=== PATIENT | male | born 1990 | race Caucasian/White ===

== ENCOUNTER 2017-07-05 23:00 | Inpatient (IN) | payer OTHER ==
[~2017-07-05] VITALS: Ht 182.9 cm; Wt 71.2 kg
--- NOTE | ~2017-07-05 | WRIGHTHP ---
[place], [place] PATIENT HISTORY AND PHYSICAL EXAM NAME: [facility] #: [id number] UNIT #: [id number] ROOM: 412 DOCTOR: DENANA FRAZIER MD BIRTHDATE: [birth year] DOS: 07/06/2017 HISTORY OF PRESENT ILLNESS: The patient has been admitted to hospital as emergency admission with history of repeated vomiting, fever and chills for the last 3 days, progressively getting worse and he was not able to retain too much food. He came to Emergency Department where on investigation was found to be having pneumonia with sepsis and needed to be admitted to the hospital. PAST MEDICAL HISTORY: The patient does not have any major medical problem except some upper respiratory tract infection. PAST SURGICAL HISTORY: Had surgical cyst removed. SOCIAL HISTORY: He smokes 1 pack of cigarettes daily and he also smokes some marijuana and he uses moderate amount of alcohol. He denies using any drugs. FAMILY HISTORY: Noncontributory. ALLERGIES: He is not allergic to any medication. PHYSICAL EXAMINATION: GENERAL: The patient is conscious, alert and oriented. VITAL SIGNS: His blood pressure is 134/78, pulse 88, respirations 20, temperature is 98.3. HEENT: He is having congestion of nose and throat. His ears are normal. NECK: Lymph nodes are enlarged in the neck and somewhat tender. Trachea is central. HEART: Regular, no murmur. LUNGS: He is having few rhonchi with crepitation. ABDOMEN: Showing some tenderness in the epigastrium. Liver and spleen not palpable. There is no other area of tenderness. No mass palpable. Rest of examination is normal. LABORATORY DATA: Luce test is negative. His CBC showed white count 23,500, hemoglobin 16, hematocrit 45.5, 87% neutrophils, 8% lymphocytes, neutrophils. Comprehensive metabolic profile showed glucose 119, BUN 9, creatinine 0.66. His sodium is 135. SGOT 47, alkaline phosphatase is 228. Other values are normal. Rapid influenza test is negative. Urine examination shows 2+ bilirubin, 1+ ketones, 1+ protein, positive nitrite, 2+ bacteria, indicating urinary tract infection also. CT of the abdomen was normal, but the CT of the chest shows moderate diffuse right lung pneumonia, relatively prominent unilateral reticular nodular pattern, lymphocytic anemia, histoplasmosis pneumotosis cranii and other atypical pneumonia shall be considered. His comprehensive metabolic today is essentially normal except alkaline phosphate 246 and his temperature today shows blood pressure 134/78, pulse 86, respirations 20, temperature 98.3. DIAGNOSES:1. Right lower lobe pneumonia with sepsis; urinary tract infection; tobacco abuse. [place], [place] PATIENT HISTORY AND PHYSICAL EXAM NAME: MICHAELA WATSON UNIT #: [id number] ROOM: 412 DOCTOR: DEANNA FRAZIER MD BIRTHDATE: [birth year] PLAN OF TREATMENT: The patient will be admitted to the hospital. Will receive IV fluid, 1 gram IV daily, Zithromax 250 mg IV daily, promethazine hydrochloride 12.5 mg p.r.n., and Zofran 4 mg q. 6 hours p.r.n. The patient is responding to treatment fairly good. He stopped vomiting. He is feeling somewhat better. He denies too much chest pain or difficulty in breathing. I have counseled the patient in detail to stop smoking, but the patient says he will not stop smoking. DEANNA FRAZIER MD CM:HISPHYS:PATIENT HISTORY AND PHYSICAL EXAMINATION [id number] DEANNA FRAZIER MD 07/06/17 1312 interface
--- NOTE | ~2017-07-05 | PR ---
[place], [place] PROGRESS NOTE NAME: MICHAELA WATSON [facility] #: [id number] UNIT #: [id number] ROOM: 412 DOCTOR: KORY GLYNN,NOVEMBER BIRTHDATE: [birth year] DOS: SUBJECTIVE: The patient is a 27-year-old male who is being followed for community-acquired pneumonia. His sputum culture is currently pending. His influenza was negative. Urine and blood cultures are negative. Sputum gram stain had few gram-positive cocci in pairs, culture has normal milo, few wbcs on the gram stain. It was obtained yesterday. He had already been on antibiotics for over 24 hours at the time it was obtained. He is on Rocephin and Zithromax. His urine for Legionella and strep pneumoniae are pending, as is his CD4 count, hepatitis panel, HIV, IgG total and subsets as well as IgA and IgM. His WBCs have improved significantly; they are down to 8.3, platelets 336. BUN 6, creatinine 0.7, AST 59, ALT 58, albumin is 3.6. An MRI today due to complaints of vision changes, which does not demonstrate any acute changes. He is alert and oriented. No nausea, vomiting or diarrhea. He did have a headache earlier today, which has improved. He has had headaches since he became ill approximately a week ago. He also had some vision changes earlier. He had been given Vicodin and Zofran and was watching TV and his vision became blurry, that has since resolved and his vision is normal. His cough has improved. He did have some shortness of breath overnight, now has some O2 via nasal cannula. No rashes. PHYSICAL EXAMINATION: VITAL SIGNS: Temperature 97.9, pulse 62, respirations 18, BP 120/80. GENERAL: A 27-year-old male. HEAD, EYES, EARS, NOSE AND THROAT: Normocephalic. He does have thrush. LUNGS: Better aeration bilaterally, few rales and rhonchi in the bases, respirations even and unlabored. HEART: Regular rhythm. No murmur appreciated. ABDOMEN: Soft, nontender, nondistended. EXTREMITIES: No edema, deformity or cyanosis. SKIN: Warm, dry, free of rashes. ASSESSMENT: Community-acquired pneumonia as well as thrush. PLAN: SD4 count is pending and HIV and hepatitis panel were also done earlier today. He has IgG total and subsets sets as well as IgA and IgM are pending. It is of note, he gives history of no recurrent infection, only other time he had pneumonia was when he was in 5th grade. Continue the Mycelex Troches for his thrush as well as the Rocephin and Zithromax for his community-acquired pneumonia and follow up on above pending labs. Case discussed with Dr. Natalie Kim. ADDENDUM I agree with the above plans as described. We will follow the patient up clinically and adjust medication accordingly. [place], [place] PROGRESS NOTE NAME: MICHAELA WATSON UNIT #: [id number] ROOM: 412 DOCTOR: KORY GLYNN,NOVEMBER BIRTHDATE: [birth year] ANTONIO HORN CNP NATALIE KIM MD CM:PNEDWAR [id number] NOVEMBER KORY GLYNN 07/09/17 0429 interface
--- NOTE | ~2017-07-05 | CON ---
[place], [place] REPORT OF CONSULTATION NAME: MICHAELA WATSON UNIT #: [id number] ROOM: 412 DOCTOR: KORY GLYNN,NOVEMBER BIRTHDATE: [birth year] DOS: 07/07/2017 HISTORY OF PRESENT ILLNESS: The patient is a 27-year-old male who was admitted from home on Friday the with states he was having fevers, chills at the time of admission. He has been afebrile since admission. He has productive cough, little shortness of breath, also having left-sided chest pain and intractable nausea and vomiting. Abdominal CT demonstrated right middle lobe pneumonia. Chest CT from the demonstrated pneumonia. I am unable to retrieve the films to review the actual films. He has been on Rocephin and Zithromax. He states he is improving somewhat, again he has been afebrile. He had significant leukocytosis, which is slowly improving. His admitting WBCs were 23.58, down 19.5 today. Urine for legionella and strep pneumoniae are pending. Sputum culture has just been obtained this morning, sputum is somewhat dick. He denies any recent weight loss or recurrent infection. States he has only had pneumonia once before when he was very young, in 5th grade, otherwise he has an unremarkable medical history and again denies any recurrent infections. Admitting tox screen was only positive for marijuana. States he has been sick now for approximately 6 days. PAST MEDICAL HISTORY: As above. SOCIAL HISTORY: Smokes 1 pack of cigarettes per day for 6 years. Denies significant alcohol use. Only illicit drug with occasional marijuana. Denies any history of IV drug use. No recent travel. FAMILY MEDICAL HISTORY: hw states parents and siblings are healthy. No chronic illness. ALLERGIES: No known drug allergies. CURRENT MEDICATIONS: Include Rocephin, Warren, Zithromax and Lovenox. LABORATORY DATA: WBC is 19.5, platelets 256. BUN 7, creatinine 0.66. LFTs within normal limits. Heard screen was negative. Urinary antigens pending. REVIEW OF SYSTEMS: As above in history of present illness. Again, he has been afebrile since admission. Nausea and vomiting have resolved. No diarrhea. No rashes. No shaking chills. No joint swelling or pain. He continues with productive cough, has a couple of sputum at bedside, somewhat dick in appearance. No issues with recurrent infection. No recent weight loss. He was well until 6 days ago. Continues with left-sided chest discomfort, especially when the coughs. Further review of systems is unremarkable. He does have a few tattoos. PHYSICAL EXAMINATION: VITAL SIGNS: Temperature 98.4, pulse 71, respirations 18, BP 110/62. GENERAL: A 27-year-old male, in no acute distress, nontoxic in appearance. HEAD, EYES, EARS, NOSE AND THROAT: Normocephalic, questionable thrush. Denies any mouth soreness of sore throat. [place], [place] REPORT OF CONSULTATION NAME: MICHAELA WATSON UNIT #: [id number] ROOM: 412 DOCTOR: KORY GLYNNNOVEMBER BIRTHDATE: [birth year] LUNGS: Coarse rales, bilateral bases. Respirations are even and unlabored. HEART: Regular rhythm. No murmur appreciated. ABDOMEN: Soft, nondistended, nontender. Positive bowel sounds. EXTREMITIES: No edema, deformity or cyanosis. SKIN: Warm, dry, free of rashes, few tattoos noted. ASSESSMENT: Community-acquired pneumonia. PLAN: Currently on Rocephin and Zithromax, which we will continue pending the urine for legionella and strep pneumoniae as well as sputum culture which has been obtained, follow up on the admitting blood cultures, order chest x-ray in a.m. and also check a CD4 count. Case discussed with Dr. Natalie Kim. ADDENDUM I agree with the above plans as described above after reviewing the labs, microbiology radiographs and chart. We will follow the patient up clinically and adjust accordingly. Thank you for allowing me to see the patient. NOVEMBER GRETTA HORN NATALIE KIM MD CM:CONSTR:REPORT OF CONSULTATION 1106 07/09/17 0428 interface
[~2017-07-05 23:00] MED LIST: AMOXICILLIN500 M2 PO; AMOXICILLIN500 MG PO; AMPICILLIN500 MG PO; CATAFLAM50 MG PO; CELEXA20 MG PO; CEPHALEXIN500 M1 PO; CYCLOBENZAPRINE10 MG PO; Catapres-Tts 10.1 MG PO; HYDROCODONE BIT1 T11 PO; INDOMETHACIN25 M1 PO; KEFLEX500 MG PO; MOTRIN800 MG PO; Motrin,Rufen800 MG PO; NAPROSYN500 MG PO; NKHM; NORCO 5-325 TA1 EACH PO; NORFLEX100 MG PO; Orphenadrine C100 MG PO; PERCOCET 325 MG1 TA5 PO; PREDNISONE20 M1 PO; PYRIDIUM200 MG PO; SKELAXIN800 M1 PO; TRAMADOL HCL50 MG PO; TRAZADONE PO; TRAZODONE50 MG PO; ULTRAM50 MG PO; [UNRECOGNIZED DRUG - OTHER] PO
[2017-07-05 23:04] VITALS: BP 144/77
[2017-07-05 23:53] LABS: HEMATOCRIT 45.4 % (42.0-52.0); MEAN CELL VOLUME 88.3 fl (80.0-94.0); MEAN CORPUSCULAR HGB 31.1 pg (27.0-31.0); MEAN CORPUSCULAR HGB CONC 35.2 g/dl (33.0-37.0); MEAN PLATELET VOLUME 10.6 fl (9.6-12.3); PLATELET COUNT AUTOMATED 254 10*3/uL (130-400); RED BLOOD COUNT 5.14 10*6/uL (4.50-5.90); RED CELL DISTRI WIDTH 12.9 % (0-14.5); WHITE BLOOD COUNT 23.5 10*3/uL (4.8-10.8)
[2017-07-06 00:09] LABS: ALBUMIN 4.1 gm/dl (3.1-4.5); ALKALINE PHOSPHATASE 228 U/L (45-117); BUN 9 mg/dl (7-24); CHLORIDE 100 mmol/L (98-107); CREATININE 0.66 mg/dL (0.70-1.30); POTASSIUM 3.7 mmol/L (3.5-5.1); SGOT/AST 47 IU/L (3-35); SGPT/ALT 45 U/L (12-78); SODIUM 135 mmol/L (136-145); TOTAL PROTEIN 7.6 gm/dL (6.4-8.2)
[2017-07-06 00:12] LABS: PLATELET SUFFICIENCY NORMAL (NORMAL); TOTAL CELLS COUNTED 100 #CELLS
[2017-07-06 01:32] LABS: BILIRUBIN 2+ (NEGATIVE); BLOOD NEGATIVE (NEGATIVE); CLARITY SL CLOUDY (CLEAR); COLOR YELLOW (YELLOW); GLUCOSE NEGATIVE (NEGATIVE); KETONE 1+ (NEGATIVE); LEUKO ESTERASE TRACE (NEGATIVE); NITRITE POSITIVE (NEGATIVE); PH 6.5 (5.0-9.0); SPECIFIC GRAVITY 1.015 (1.005-1.030); UROBILINOGEN >= 8.0 E.U./dl (0.2-1.0)
[2017-07-06 01:44] LABS: BACTERIA 2+
[2017-07-06 02:30] LABS: HEMATOCRIT 40.3 % (42.0-52.0); HEMOGLOBIN 14.2 g/dl (14.0-18.0); MEAN CELL VOLUME 89.6 fl (80.0-94.0); MEAN CORPUSCULAR HGB 31.6 pg (27.0-31.0); MEAN CORPUSCULAR HGB CONC 35.2 g/dl (33.0-37.0); MEAN PLATELET VOLUME 10.7 fl (9.6-12.3); PLATELET COUNT AUTOMATED 245 10*3/uL (130-400); WHITE BLOOD COUNT 20.7 10*3/uL (4.8-10.8)
[2017-07-06 02:50] LABS: ATYPICAL LYMPHS 1 % (0-0); PLATELET SUFFICIENCY NORMAL (NORMAL); TOTAL CELLS COUNTED 100 #CELLS
[2017-07-06 06:00] LABS: URINE AMPHETAMINES < 1000 (1000ng/ml); URINE BARBITURATES < 200 (200ng/ml); URINE BENZODIAZEPINES < 200 (200ng/ml); URINE CANNABINOIDS (THC) > 50 (50ng/ml); URINE COCAINE < 300 (300ng/ml); URINE METHADONE < 300 (300ng/ml); URINE OPIATES < 300 (300ng/ml)
[2017-07-06 06:15] LABS: URINE PHENCYCLIDINE < 25 (25ng/ml)
[2017-07-06 06:20] VITALS: BP 136/76
[2017-07-06 06:30] VITALS: BP 136/76
--- NOTE | 2017-07-06 07:30 | NUR ---
PATIENT DENIES ANY HOME MEDICATIONS.
[2017-07-06 08:00] VITALS: BP 134/78
--- NOTE | 2017-07-06 09:27 | NUR ---
CALLED AND NOTIFIED INFECTIOUS DISEASE OF CONSULT. ORDERS RECEIVED AND REPEATED BACK CONTINUE ON ANTIBIOTICS AND ORDER CHEST CT SCAN WO CONTRAST. DR WILL BE IN TO SEE PATIENT LATER TODAY
[2017-07-06 09:48] LABS: BASO # 0.1 10*3/uL (0.0-0.1); BASO % 0.3 % (0.0-1.0); EOS # 0.1 10*3/uL (0.0-0.4); EOS % 0.7 % (1.0-4.0); HEMATOCRIT 41.7 % (42.0-52.0); HEMOGLOBIN 14.4 g/dl (14.0-18.0); LYMPH # 1.6 10*3/uL (1.3-4.4); LYMPH % 8.3 % (27.0-41.0); MEAN CELL VOLUME 89.1 fl (80.0-94.0); MEAN CORPUSCULAR HGB 30.8 pg (27.0-31.0); MEAN CORPUSCULAR HGB CONC 34.5 g/dl (33.0-37.0); MEAN PLATELET VOLUME 10.7 fl (9.6-12.3); MONO # 1.4 10*3/uL (0.1-1.0); MONO % 6.9 % (3.0-9.0); NEUT # 16.2 10*3/uL (2.3-7.9); NEUT % 83.4 % (47.0-73.0); PLATELET COUNT AUTOMATED 256 10*3/uL (130-400); RED BLOOD COUNT 4.68 10*6/uL (4.50-5.90); RED CELL DISTRI WIDTH 13.1 % (0-14.5); WHITE BLOOD COUNT 19.5 10*3/uL (4.8-10.8)
[2017-07-06 10:17] LABS: ALBUMIN 3.3 gm/dl (3.1-4.5); ALKALINE PHOSPHATASE 249 U/L (45-117); BUN 7 mg/dl (7-24); CHLORIDE 104 mmol/L (98-107); CREATININE 0.66 mg/dL (0.70-1.30); SGOT/AST 19 IU/L (3-35); SGPT/ALT 36 U/L (12-78); SODIUM 138 mmol/L (136-145); TOTAL PROTEIN 6.7 gm/dL (6.4-8.2)
--- NOTE | 2017-07-06 11:19 | NUR ---
PATIENT SLEEPING IN BED. NO CO AT THIS TIME CALL LIGHT IN REACH SEE SHIFT ASSESSMENT
[2017-07-06 12:00] VITALS: BP 116/70
[2017-07-06 16:22] VITALS: BP 130/69
--- NOTE | 2017-07-06 16:43 | NUR ---
PATIENT RESTING IN BED CALL LIGHT IN REACH NO CO AT THIS TIME
[2017-07-06 20:00] VITALS: BP 122/69
--- NOTE | 2017-07-06 22:57 | NUR ---
RESTING IN BED WATCHING TV. DENIES COMPLAINTS OF PAIN OR DISCOMFORT. WILL CONTINUE TO MONITOR. CALL LIGHT IN REACH.
[2017-07-07] VITALS: BP 120/58
--- NOTE | 2017-07-07 06:12 | NUR ---
PATIENT COMPLAINING OF UPPER ABDOMINAL PAIN AND CHEST/RIB PAIN. NEW ORDER FOR NORCO Q 4 HOURS PRN FOR PAIN.
--- NOTE | 2017-07-07 06:48 | NUR ---
PATIENT COMPLAINING OF IV BURNING. IV REMOVED AND 22G INSERTED INTO RIGHT ARM WITHOUT DIFFICULTY. PATIENT TOLERATED PROCEDURE WELL. GOOD BLOOD RETURN. NO SIGNS OR SYMPTOMS OF DISTRESS. CALL LIGHT IN REACH.
[2017-07-07 08:00] VITALS: BP 110/62
--- NOTE | 2017-07-07 08:30 | NUR ---
Senior Database Engineer in to talk to patient. Patient states lives at HOME with HIS GIRLFRIEND. There are 10 steps in the home. Physician: MIRIAN Pharmacy: [facility] [place] Home health services: NONE Patient's level of ADLs: INDEPENDENT Patient has working utilities: YES DME: NONE Follow-up physician's appointment after d/c: PREFERS TO MAKE HIS OWN APPT Does patient want to access PORTAL?: Discharge plan HOME. JESSICA TAVERAS
[2017-07-07 12:00] VITALS: BP 147/75
[2017-07-07 16:00] VITALS: BP 115/62
[2017-07-07 20:00] VITALS: BP 128/56
--- NOTE | 2017-07-07 20:28 | NUR ---
PATIENT MEDICATED WITH NORCO FOR COMPLAINTS OF RIGHT SIDED RIB PAIN. WILL MONITOR FOR EFFECTIVENESS.
--- NOTE | 2017-07-07 21:04 | NUR ---
PATIENT STATED NORCO SOMEWHAT EFFECTIVE AT THIS TIME. SAID IT STILL HURTS BUT NOT BAD. WILL CONTINUE TO MONITOR. CALL LIGHT IN REACH.
[2017-07-08] VITALS: BP 112/66
--- NOTE | 2017-07-08 06:04 | NUR ---
PATIENT MEDICATED WITH ZOFRAN FOR COMPLAINTS OF NAUSEA AND NORCO FOR COMPLAINTS OF RIB PAIN. WILL MONITOR FOR EFFECTIVENESS.
[2017-07-08 06:59] LABS: BASO # 0.1 10*3/uL (0.0-0.1); BASO % 0.7 % (0.0-1.0); EOS # 0.6 10*3/uL (0.0-0.4); EOS % 6.6 % (1.0-4.0); HEMATOCRIT 45.2 % (42.0-52.0); HEMOGLOBIN 15.9 g/dl (14.0-18.0); LYMPH # 2.2 10*3/uL (1.3-4.4); LYMPH % 26.9 % (27.0-41.0); MEAN CELL VOLUME 89.9 fl (80.0-94.0); MEAN CORPUSCULAR HGB 31.6 pg (27.0-31.0); MEAN CORPUSCULAR HGB CONC 35.2 g/dl (33.0-37.0); MEAN PLATELET VOLUME 10.6 fl (9.6-12.3); MONO # 0.8 10*3/uL (0.1-1.0); MONO % 9.7 % (3.0-9.0); NEUT # 4.7 10*3/uL (2.3-7.9); NEUT % 55.9 % (47.0-73.0); RED BLOOD COUNT 5.03 10*6/uL (4.50-5.90); WHITE BLOOD COUNT 8.3 10*3/uL (4.8-10.8)
[2017-07-08 07:00] LABS: PLATELET COUNT AUTOMATED 336 10*3/uL (130-400)
[2017-07-08 07:07] LABS: ALBUMIN 3.6 gm/dl (3.1-4.5); ALKALINE PHOSPHATASE 242 U/L (45-117); BUN 6 mg/dl (7-24); CHLORIDE 102 mmol/L (98-107); GAMMA GLUTAMYL TRANSPEPTIDASE 230 U/L (15-85); POTASSIUM 4.2 mmol/L (3.5-5.1); SGOT/AST 59 IU/L (3-35); SGPT/ALT 58 U/L (12-78); SODIUM 139 mmol/L (136-145); TOTAL PROTEIN 7.3 gm/dL (6.4-8.2)
[2017-07-08 08:00] VITALS: BP 124/72
--- NOTE | 2017-07-08 08:00 | NUR ---
Assessment completed and documented. Patient is sitting up in bed, watching TV, no complaints of pain or SOB. Marjan SNYDER JDRCC
[2017-07-08 08:12] LABS: HIV 1+2 AB + HIV1 P24 AG Non Reactive (Non Reactive)
[2017-07-08 08:12] LABS: WBC 12.9 x10E3/uL (3.4-10.8)
--- NOTE | 2017-07-08 10:30 | NUR ---
PT TO MRI. MONITOR D/C DURING MRI.
--- NOTE | 2017-07-08 10:39 | NUR ---
PATIENT SLEEPING PEACEFUL IN BED. SHANICE COTTONCC
--- NOTE | 2017-07-08 11:55 | NUR ---
PT GIVEN NORCO FOR PAIN. ZOFRAN FOR NAUSEA, AND MILK OF MAGNESIA AND BISCODYL PRN.
[2017-07-08 12:00] VITALS: BP 120/80
--- NOTE | 2017-07-08 12:20 | NUR ---
PATIENT HAS NO COMPLAINTS OF PAIN, SITTING UP IN BED, WATCHING TV. SHANICE COTTONCC
[2017-07-08 14:05] LABS: ABSOLUTE CD 4 HELPER 1010 /uL (359-1519); ABSOLUTE CD8 SUPRESSOR 406 /uL (109-897); CD 4 POS LYMPH, % 50.5 % (30.8-58.5); CD 8 POS LYMPH, % 20.3 % (12.0-35.5)
[2017-07-08 16:00] VITALS: BP 109/73
--- NOTE | 2017-07-08 16:22 | NUR ---
PT MEDICATED WITH ZOFRAN AND NORCO FOR C/O OF DISCOMFORT.
--- NOTE | 2017-07-08 18:43 | NUR ---
HR UP TO 130'S -150'S/SINUS TACHYCARDIA/REGULAR RATE DOWN TO 110'S WITH REST.
--- NOTE | 2017-07-08 18:49 | NUR ---
HR CURRENTLY 80'S -90'S NSR AND REGULAR ON HIDE HOUSE SUPERVISOR WITH RESTING IN BED.
[2017-07-08 20:00] VITALS: BP 122/88
--- NOTE | 2017-07-08 21:46 | NUR ---
PATIENT MEDICATED WITH NORCO FOR COMPLAINTS OF RIGHT RIB PAIN AND ZOFRAN FOR COMPLAINTS OF UPSET STOMACH. WILL MONITOR FOR EFFECTIVENESS. CALL LIGHT IN REACH.
--- NOTE | 2017-07-08 23:57 | NUR ---
NORCO AND ZOFRAN EFFECTIVE. RESTING IN BED WITH EYES CLOSED. NO SIGNS OR SYMPTOMS OF DISTRESS NOTED. CALL LIGHT IN REACH.
[2017-07-09] VITALS: BP 121/66
[2017-07-09 01:03] LABS: IGG SUBCLASS 1 301 mg/dL (248-810); IGG SUBCLASS 2 134 mg/dL (130-555); IGG SUBCLASS 3 68 mg/dL (15-102); IGG SUBCLASS 4 7 mg/dL (2-96)
[2017-07-09 04:00] VITALS: BP 124/72
--- NOTE | 2017-07-09 05:46 | NUR ---
PATIENT MEDICATED WITH ZOFRAN FOR COMPLAINTS OF NAUSEA. WILL MONITOR FOR EFFECTIVENESS. CALL LIGHT IN REACH.
--- NOTE | 2017-07-09 06:08 | NUR ---
ANA EFFECTIVE AT THIS TIME. STATES HE IS FEELING BETTER. WILL CONTINUE TO MONITOR. CALL LIGHT IN REACH.
[2017-07-09 06:31] LABS: BASO # 0.1 10*3/uL (0.0-0.1); BASO % 1.1 % (0.0-1.0); EOS # 0.5 10*3/uL (0.0-0.4); EOS % 6.5 % (1.0-4.0); HEMATOCRIT 48.4 % (42.0-52.0); HEMOGLOBIN 16.4 g/dl (14.0-18.0); LYMPH # 2.4 10*3/uL (1.3-4.4); LYMPH % 28.7 % (27.0-41.0); MEAN CELL VOLUME 89.8 fl (80.0-94.0); MEAN CORPUSCULAR HGB 30.4 pg (27.0-31.0); MEAN CORPUSCULAR HGB CONC 33.9 g/dl (33.0-37.0); MEAN PLATELET VOLUME 10.3 fl (9.6-12.3); MONO # 0.7 10*3/uL (0.1-1.0); MONO % 8.8 % (3.0-9.0); NEUT # 4.5 10*3/uL (2.3-7.9); NEUT % 54.4 % (47.0-73.0); PLATELET COUNT AUTOMATED 395 10*3/uL (130-400); RED BLOOD COUNT 5.39 10*6/uL (4.50-5.90); RED CELL DISTRI WIDTH 13.1 % (0-14.5); WHITE BLOOD COUNT 8.3 10*3/uL (4.8-10.8)
[2017-07-09 06:58] LABS: BUN 7 mg/dl (7-24); CHLORIDE 105 mmol/L (98-107); CREATININE 0.76 mg/dL (0.70-1.30); POTASSIUM 4.2 mmol/L (3.5-5.1); SODIUM 142 mmol/L (136-145)
[2017-07-09 08:00] VITALS: BP 120/86
[2017-07-09 08:13] LABS: HEPATITIS B SURFACE AG Negative (Negative); HEPATITIS C VIRUS ANTIBODY <0.1 s/co (0.0-0.9)
--- NOTE | 2017-07-09 08:42 | NUR ---
PATIENT CURRENTLY OFF FLOOR, DUE TO PROCEDURE. NPO SINCE 2400. PATIENT WAS PLEASANT AND COOPERATIVE. DON MORENOCC
--- NOTE | 2017-07-09 09:00 | NUR ---
BACK FROM RADIOLOGY, BREAKFAST ORDERED RAH BRO KEVINCC
--- NOTE | 2017-07-09 09:11 | NUR ---
MEDICATED WITH PRN PO NORCO FOR C/O RIGHT SIDE AND LEFT ANTERIOR RIB CAGE PAIN INCREASING WITH INSPIRATION.
--- NOTE | 2017-07-09 10:13 | NUR ---
PATIENT IS PLEASENT AND COMFORTABLE IN BED, HAVING FAMILY VISIT.
--- NOTE | 2017-07-09 10:21 | NUR ---
PRN PO NORCO EFFECTIVE, PER PATIENT.
[2017-07-09 12:00] VITALS: BP 127/79
--- NOTE | 2017-07-09 13:07 | NUR ---
PT REFUSES AM CARE, STATES THAT HE THINKS THAT HE NEEDS OUTPATIENT SURGERY-DISCUSSED WITH NURSE RAH ELLISONCC
--- NOTE | 2017-07-09 14:32 | NUR ---
PT STATES THAT HE IS FEELING MORE CALM NOW AND WILL STAY IN THE HOSPITAL AND NOT LEAVE AMA. HE WAS MEDICATED WITH NORCO AND IS NOT NAUSEOUS AT THIS TIME.
[2017-07-09] MEDS ORDERED: ZITHROMAX500 MG PO (14:44)
--- NOTE | 2017-07-09 14:55 | NUR ---
PATIENT AMBULATED IN HALLWAY AND UP/DOWN STAIRCASE, BACK TO ROOM. POX 96% ON ROOM AIR IMMEDIATELY AFTER THE ACTIVITY. DR. BROCK IN TO SEE PATIENT, WILL NOTIFY OF RESULT.
[2017-07-09 15:09] LABS: CD4-CD8 RATIO 2.49 (0.92-3.72)
--- NOTE | 2017-07-09 15:24 | NUR ---
DR. BROCK NOTIFIED OF POX RESULT WITH ACTIVITY. OBTAINED ORDER TO CANCEL THE HOME O2 ASSESSMENT, OK TO DISCHARGE AFTER HISTOPLASMA LAB DRAWN PER DR. BROCK. DR. DE LA GARZA NOTIFIED OF THIS, PER DR. DE LA GARZA HE PLANS TO DISCHARGE PATIENT THIS EVENING.
[2017-07-09 16:00] VITALS: BP 138/83
--- NOTE | 2017-07-09 16:30 | NUR ---
PRN PO NORCO EFFECTIVE, PER PATIENT.
--- NOTE | 2017-07-09 19:38 | NUR ---
Discharge instructions reviewed with patient/family. Patient receptive and verbalizes understanding. Follow-up care arranged. Written instructions given to patient/family. PATIENT DISCHARGED TO [facility], AMBULATORY, FOR TRANSPORT HOME BY PRIVATE VEHICLE WITH FAMILY MEMBER SHANTEL GUPTA
== END 2017-07-09 19:38 | disposition home or self-care (01) | DRG 871 ==
LOC: ED 23:00 → 4E 07-06 05:56 → EDHOLD 07-06 05:56 → 4E 07-06 06:02
PROVIDERS: Emergency Medicine Emergency Medical Services; Internal Medicine; Nurse Practitioner; Nurse Practitioner Family; ADMIT Internal Medicine
DX: A41.9 Sepsis, unspecified organism (principal); J18.1 Lobar pneumonia, unspecified organism; E87.1 Hypo-osmolality and hyponatremia; F17.210 Nicotine dependence, cigarettes, uncomplicated; B37.9 Candidiasis, unspecified; F12.10 Cannabis abuse, uncomplicated; N39.0 Urinary tract infection, site not specified; G45.3 Amaurosis fugax; R74.0 Nonspecific elevation of levels of transaminase and lactic acid dehydrogenase [LDH]; R74.8 Abnormal levels of other serum enzymes; R03.0 Elevated blood-pressure reading, without diagnosis of hypertension; J01.40 Acute pansinusitis, unspecified; Z71.6 Tobacco abuse counseling; Z79.899 Other long term (current) drug therapy

== ENCOUNTER → 2017-12-24 | Outpatient (CLI) | payer OTHER ==
[~2017-12-24] MED LIST changes: +ZITHROMAX500 MG PO
== END | disposition home or self-care (01) ==
LOC: RAD 15:02
DX: M25.511 Pain in right shoulder (principal)

== ENCOUNTER 2018-01-06 13:01 | Emergency (ER) | payer OTHER ==
[~2018-01-06] VITALS: Ht 185.4 cm; Wt 70.3 kg
== END 2018-01-06 14:46 | disposition home or self-care (01) ==
LOC: ED 13:01
DX: M25.511 Pain in right shoulder (principal); F17.200 Nicotine dependence, unspecified, uncomplicated; Z79.899 Other long term (current) drug therapy; X50.1XXA Overexertion from prolonged static or awkward postures, initial encounter; Y93.89 Activity, other specified; Y92.89 Other specified places as the place of occurrence of the external cause; Y99.9 Unspecified external cause status

== ENCOUNTER 2018-05-20 17:51 | Emergency (ER) | payer OTHER ==
[~2018-05-20] VITALS: Wt 72.6 kg
[2018-05-20] MEDS ORDERED: PAROXETINE HCL20 MG PO (17:57)
[2018-05-20] MEDS ORDERED: DOXEPIN HCL50 MG PO (17:57)
[2018-05-20] MEDS ORDERED: HYDROXYZINE PAM25 M1 PO (17:57)
[2018-05-20] MEDS ORDERED: NORCO 5-325 TA1 EACH PO (18:31)
[2018-05-20] MEDS ORDERED: IBUPROFEN600 MG PO (18:31)
[2018-05-20] MEDS ORDERED: SILVADENE,SSD C50 GM T (18:31)
== END 2018-05-20 18:45 | disposition home or self-care (01) ==
LOC: ED 17:51
DX: T23.251A Burn of second degree of right palm, initial encounter (principal); F17.200 Nicotine dependence, unspecified, uncomplicated; Z79.899 Other long term (current) drug therapy; X19.XXXA Contact with other heat and hot substances, initial encounter; Y93.89 Activity, other specified; Y92.89 Other specified places as the place of occurrence of the external cause; Y99.8 Other external cause status

== ENCOUNTER 2018-10-11 23:02 | Emergency (ER) | payer OTHER ==
[~2018-10-11] VITALS: Ht 182.8 cm; Wt 70.3 kg
[~2018-10-11 23:02] MED LIST changes: +DOXEPIN HCL50 MG PO; +HYDROXYZINE PAM25 M1 PO; +IBUPROFEN600 MG PO; +PAROXETINE HCL20 MG PO; +SILVADENE,SSD C50 GM T
== END 2018-10-12 00:01 | disposition home or self-care (01) ==
LOC: ED 23:02
DX: K08.89 Other specified disorders of teeth and supporting structures (principal); F17.200 Nicotine dependence, unspecified, uncomplicated

== ENCOUNTER → 2019-07-21 | Outpatient (CLI) | payer BC, OTHER | END | disposition home or self-care (01) | LOC: MRI 14:28 | DX: J32.0 Chronic maxillary sinusitis (principal) ==

== ENCOUNTER → 2020-07-07 | Outpatient (CLI) | payer BC, OTHER | END | disposition home or self-care (01) | LOC: COVID19 01:08 | PROVIDERS: ATTEND Student in an Organized Health Care Education/Training Program | DX: Z20.828 Contact with and (suspected) exposure to other viral communicable diseases (principal) ==

== ENCOUNTER 2021-05-25 10:52 | Emergency (ER) | payer OTHER, BC ==
[~2021-05-25] VITALS: Ht 182.8 cm; Wt 68.0 kg
[2021-05-25] MEDS ORDERED: SILVADENE20 GM T (12:14)
[2021-05-25] MEDS ORDERED: BACITRAYCIN PLU28 GM T (12:14)
== END 2021-05-25 12:22 | disposition home or self-care (01) ==
LOC: ED 10:52
DX: T24.201A Burn of second degree of unspecified site of right lower limb, except ankle and foot, initial encounter (principal); X13.1XXA Other contact with steam and other hot vapors, initial encounter; Y93.89 Activity, other specified; Y92.89 Other specified places as the place of occurrence of the external cause; Y99.8 Other external cause status

== ENCOUNTER 2021-08-22 16:59 | Emergency (ER) | payer OTHER ==
[~2021-08-22 16:59] MED LIST changes: +BACITRAYCIN PLU28 GM T; +SILVADENE20 GM T
[2021-08-22] MEDS ORDERED: BUPRENORPHINE-1 EAC2 SL (19:58)
[2021-08-22] MEDS ORDERED: LEVOFLOXACIN750 M2 PO (23:34)
== END 2021-08-22 18:02 | disposition left against medical advice (07) ==
LOC: ED 16:59
DX: Z53.21 Procedure and treatment not carried out due to patient leaving prior to being seen by health care provider (principal)

== ENCOUNTER 2021-08-22 19:56 | Emergency (ER) | payer OTHER ==
[2021-08-22] MEDS ORDERED: BUPRENORPHINE-1 EAC2 SL (19:58)
[2021-08-22 21:11] LABS: BASO # 0.1 10*3/uL (0.0-0.1); BASO % 0.5 % (0.0-1.0); EOS % 0.1 % (1.0-4.0); HEMATOCRIT 42.4 % (42.0-52.0); LYMPH # 1.2 10*3/uL (1.3-4.4); LYMPH % 11.1 % (27.0-41.0); MEAN CELL VOLUME 91.6 fl (80.0-94.0); MEAN CORPUSCULAR HGB 30.9 pg (27.0-31.0); MEAN CORPUSCULAR HGB CONC 33.7 g/dl (33.0-37.0); MONO # 0.7 10*3/uL (0.1-1.0); MONO % 6.6 % (3.0-9.0); NEUT # 8.6 10*3/uL (2.3-7.9); NEUT % 81.5 % (47.0-73.0); PLATELET COUNT AUTOMATED 277 10*3/uL (130-400); RED BLOOD COUNT 4.63 10*6/uL (4.50-5.90); RED CELL DISTRI WIDTH 12.9 % (0-14.5); WHITE BLOOD COUNT 10.6 10*3/uL (4.8-10.8)
[2021-08-22 21:25] LABS: ALBUMIN 3.6 gm/dl (3.1-4.5); ALKALINE PHOSPHATASE 141 U/L (45-117); BUN 8 mg/dl (7-24); CHLORIDE 104 mmol/L (98-107); CREATININE 0.76 mg/dL (0.70-1.30); POTASSIUM 3.6 mmol/L (3.5-5.1); SGOT/AST 25 IU/L (3-35); SGPT/ALT 34 U/L (12-78); SODIUM 137 mmol/L (136-145); TOTAL PROTEIN 6.7 gm/dL (6.4-8.2)
[2021-08-22] MEDS ORDERED: LEVOFLOXACIN750 M2 PO (23:34)
== END 2021-08-22 23:59 | disposition home or self-care (01) ==
LOC: ED 19:56
PROVIDERS: Emergency Medicine
DX: R50.9 Fever, unspecified (principal); Z20.822 Contact with and (suspected) exposure to COVID-19; R05.9 Cough, unspecified; R09.81 Nasal congestion; F17.200 Nicotine dependence, unspecified, uncomplicated

== ENCOUNTER → 2021-11-11 | Outpatient (CLI) | payer OTHER ==
[~2021-11-11] MED LIST changes: +BUPRENORPHINE-1 EAC2 SL; +LEVOFLOXACIN750 M2 PO
[2021-11-11 13:59] LABS: HEMATOCRIT 45.8 % (42.0-52.0); MEAN CELL VOLUME 91.6 fl (80.0-94.0); MEAN CORPUSCULAR HGB CONC 33.8 g/dl (33.0-37.0); MEAN PLATELET VOLUME 10.2 fl (9.6-12.3); RED CELL DISTRI WIDTH 13.2 % (0-14.5); WHITE BLOOD COUNT 11.6 10*3/uL (4.8-10.8)
[2021-11-11 14:19] LABS: CHLORIDE 108 mmol/L (98-107); SODIUM 140 mmol/L (136-145)
[2021-11-11 14:24] LABS: ALKALINE PHOSPHATASE 136 U/L (45-117); BUN 13 mg/dl (7-24); CHOLESTEROL 129 mg/dL (<200); CREATININE 0.72 mg/dL (0.70-1.30); LDL CHOLESTEROL 60 mg/dL (9-159); SGOT/AST 30 IU/L (3-35); SGPT/ALT 45 U/L (12-78); TOTAL PROTEIN 6.9 gm/dL (6.4-8.2); TRIGLYCERIDES 59 mg/dl (<150)
[2021-11-11 14:49] LABS: VITAMIN D, 25-HYDROXY 8.2 ng/mL (30-100)
[2021-11-15 02:04] LABS: TESTOSTERONE FREE, (DIRECT) 6.4 pg/mL (9.3-26.5)
== END | disposition home or self-care (01) ==
LOC: LAB 13:30
PROVIDERS: ATTEND Family Medicine
DX: Z00.00 Encounter for general adult medical examination without abnormal findings (principal); E55.9 Vitamin D deficiency, unspecified; M25.511 Pain in right shoulder

== ENCOUNTER 2023-11-15 09:01 | Emergency (ER) | payer OTHER ==
[~2023-11-15] VITALS: Ht 182.8 cm; Wt 68.0 kg
[2023-11-15] MEDS ORDERED: SODIUM CHLORIDE 0.9% 1,000 ML IV ONE (09:30)
[2023-11-15] MEDS ORDERED: Ketorolac Tromethamine 15 MG/ML VIAL IV ONE (09:30)
[2023-11-15 09:49] LABS: BASO % 0.3 % (0.0-1.0); EOS # 0.1 10*3/uL (0.0-0.4); EOS % 0.5 % (1.0-4.0); LYMPH # 1.7 10*3/uL (1.3-4.4); MEAN CELL VOLUME 92.7 fl (80.0-94.0); MEAN CORPUSCULAR HGB 30.4 pg (27.0-31.0); MEAN CORPUSCULAR HGB CONC 32.8 g/dl (33.0-37.0); MONO % 6.3 % (3.0-9.0); NEUT # 12.5 10*3/uL (2.3-7.9); NEUT % 81.6 % (47.0-73.0); PLATELET COUNT AUTOMATED 285 10*3/uL (130-400); RED BLOOD COUNT 4.64 10*6/uL (4.50-5.90); RED CELL DISTRI WIDTH 13.1 % (0-14.5); WHITE BLOOD COUNT 15.2 10*3/uL (4.8-10.8)
[2023-11-15 10:24] LABS: ALKALINE PHOSPHATASE 229 U/L (46-116); BUN 7 mg/dl (9-23); CHLORIDE 101 mmol/L (98-107); CPK 22 U/L (34-171); POTASSIUM 3.6 mmol/L (3.4-5.1); SGPT/ALT 92 U/L (5-49); TOTAL PROTEIN 7.1 gm/dL (6.0-8.0)
[2023-11-15] MEDS ORDERED: LEVOFLOXACIN 150 ML IV ONE (10:50)
[2023-11-15] MEDS ORDERED: MELOXICAM15 MG PO (11:22)
[2023-11-15] MEDS ORDERED: LEVOFLOXACIN750 M2 PO (11:22)
== END 2023-11-15 12:40 | disposition home or self-care (01) ==
LOC: ED 09:01
PROVIDERS: Emergency Medicine
DX: J18.9 Pneumonia, unspecified organism (principal); Z20.822 Contact with and (suspected) exposure to COVID-19; R07.89 Other chest pain; F17.210 Nicotine dependence, cigarettes, uncomplicated; Z79.899 Other long term (current) drug therapy

== ENCOUNTER 2023-11-18 05:17 | Emergency (ER) | payer OTHER ==
[~2023-11-18] VITALS: Ht 180.3 cm; Wt 65.8 kg
[~2023-11-18 05:17] MED LIST changes: +MELOXICAM15 MG PO
[2023-11-18] MEDS ORDERED: methylPREDNISolone sod succ 125 MG VIAL IM ONE (06:30)
[2023-11-18] MEDS ORDERED: Doxycycline Hyclate 100 MG CAP PO ONE (06:30)
[2023-11-18] MEDS ORDERED: PREDNISONE20 M1 PO (06:33)
[2023-11-18] MEDS ORDERED: VIBRAMYCIN100 MG PO (06:33)
== END 2023-11-18 06:41 | disposition home or self-care (01) ==
LOC: ED 05:17
DX: J18.9 Pneumonia, unspecified organism (principal); R06.02 Shortness of breath; F32.A Depression, unspecified; F17.200 Nicotine dependence, unspecified, uncomplicated; F12.10 Cannabis abuse, uncomplicated; Z98.890 Other specified postprocedural states